=== PATIENT | female | born 1990 | race Caucasian/White ===

== ENCOUNTER → 2016-11-20 | Outpatient (CLI) | payer OTHER ==
--- NOTE | 2016-11-20 14:20 | US ---
Limited perineal ultrasound 1344 hours. HISTORY: Labial swelling. Rule out cyst. FINDINGS: Ultrasound was performed of the right and left labia. Bilateral fluid collections are ident ified with some hazy internal echoes compatible with chronic fluid collection. The neil are smooth. The collection involving the left labia measures 2.0 x 1.7 x 0.8 cm. The collection on the right has a partial internal septation and measures 3.8 x 1.5 x 1.3 cm. There is no internal color flow enhance ment. There is minimal color flow enhancement of the neil of each of these cysts. No additional abno rmality seen. IMPRESSION: 1. Bilateral labial cysts with partial septation on the right compatible with Bartholin's cysts.
== END ==
LOC: FIMAGING 13:29
PROVIDERS: ATTEND Obstetrics & Gynecology
DX: N75.0 Cyst of Bartholin's gland (principal)

== ENCOUNTER → 2016-12-11 | Outpatient (CLI) | payer OTHER ==
[~2016-12-11] MED LIST: LIDOCAINE 1% 30 ML SDV ONE; NA BICARBONATE 50 MEQ/50 ML VIAL ONE
== END ==
LOC: FIMAGING 09:47
PROVIDERS: ATTEND Obstetrics & Gynecology
PROC: 0W9N3ZZ Drainage of Female Perineum, Percutaneous Approach (ICD-10-PCS; principal; 2016-12-11)
DX: N75.0 Cyst of Bartholin's gland (principal)